=== PATIENT | female | born 1995 | race Caucasian/White ===

== ENCOUNTER 2016-07-03 18:16 | Emergency (ER) | payer OTHER ==
--- NOTE | 2016-07-22 16:40 | ER ---
ADMIT: 07/03/2016 RM/LOC: ER [facility] MR#: [id number] [address] [id number] KENDRAANDREW GOMEZ [address] [place] [address] Emergency Room Report SEX: F AGE: 20 : 1995 DATE: 07/03/2016 ADDENDUM: This patient comes to the ER because she has pain in her left ankle. She was walking and fell through a pallet at work. She does bear weight but it is difficult for her to do so. X-ray was negative for any fractures. DIAGNOSIS: Left ankle sprain. DISPOSITION: She was placed in an Roney wrap and an air splint, given Ashton in the ER. I wrote a prescription for Ashton. She should ice and elevate. Follow up with Dr. Chappell in 1 week if not better. Please see my T-sheet. HEAVEN Ptaten / Vamshi Khan MD / sindhu JOB #: [id number] CC: Vamshi Khan MD, Attending Physician Steven Chappell MD, Family Physician
== END 2016-07-03 19:35 | disposition home or self-care (01) ==
LOC: ER 18:16
DX: S93.402A Sprain of unspecified ligament of left ankle, initial encounter (principal); Z79.899 Other long term (current) drug therapy; W19.XXXA Unspecified fall, initial encounter

== ENCOUNTER 2016-07-14 17:39 | Emergency (ER) | payer OTHER ==
--- NOTE | 2016-07-27 03:57 | ER ---
ADMIT: 07/14/2016 RM/LOC: ER [facility] MR#: [id number] [address] [facility] [address] [place] [id number] ANDREW SOLIZ [address] [place] [address] Emergency Room Report SEX: F AGE: 20 : 1995 DATE: 07/14/2016 ADDENDUM: CHIEF COMPLAINT: Needs a work note to go back to work. HISTORY OF PRESENT ILLNESS: The patient is a 20-year-old female, who was seen previously for a left ankle sprain. She has since followed up with Dr. Chappell and she is set up for physical therapy. She injured it at work initially and due to the fact she did not get a work note stating that she was able to go back to work from Dr. Chappell even though he said that she was fine, she presents today so she can start working again. She states she is able to tolerate walking on it, has been wearing her brace without difficulty and only having minimal pain. PAST MEDICAL HISTORY: Negative. MEDICATIONS: See nurse's note. ALLERGIES: NONE. SOCIAL HISTORY: Denies smoking, drug, or alcohol use. PHYSICAL EXAMINATION: GENERAL: The patient is alert, oriented, no distress. LUNGS: No respiratory distress. EXTREMITIES: She is able to move all extremities. NEUROLOGIC: Sensation and motor are grossly intact. She does have a brace on, and she is able to ambulate without difficulty, and gait is normal. MEDICAL DECISION MAKING: Based on patient's description of her symptoms at this time and her physical exam, I do not see reason she is not able to go back to work and she was given a work note. DIAGNOSIS: Healing left ankle sprain. Steven Gutierrez MD/ sindhu JOB #: [id number] CC: Sancho Bush MD, Attending Physician Steven Chappell MD, Family Physician
== END 2016-07-14 18:35 | disposition home or self-care (01) ==
LOC: ER 17:39
DX: S93.402A Sprain of unspecified ligament of left ankle, initial encounter (principal); X58.XXXA Exposure to other specified factors, initial encounter; Z79.899 Other long term (current) drug therapy